=== PATIENT | male | born 1975 | race Caucasian/White ===

== ENCOUNTER 2024-09-14 13:22 | Emergency (ER) | payer OTHER, SELFPAY ==
[2024-09-14 13:59] VITALS: BP 139/93
[2024-09-14 14:00] VITALS: BP 139/93
--- NOTE | 2024-09-14 14:00 | ED.GENMED ---
ED Provider Triage
<Nima Fink PA-C - Last Filed: 09/14/24 14:02>
-
Patient seen by provider in Triage?: Seen in Triage
Attestation: A medical screening examination has been initiated by a qualified medical provider. Based on the assessment performed at this time, it has been determined that an emergent medical condition may exist and the patient has been informed
that further medical evaluation and possible additional diagnostic testing may be needed.
HPI: Noticed periumbilical suspected hernia couple weeks ago. Increasing pain over the this time. Started with some diarrhea the last few days. Made an appointment with primary care provider for tomorrow but due to increasing pain symptoms
decided to come here today. No change in oral intake. No nausea or vomiting.
GENERAL: Alert , in no apparent distress
EYE: No visual abnormalities.
NECK: Trachea midline
ENT: No visible abnormalities.
LUNGS: No acute respiratory distress
NEUROLOGICAL: Alert and oriented
SKIN: Skin intact. No visible changes.
MUSCULOSKELETAL: Moving extremities normally
PSYCH: Normal and appropriate interaction.
This is a medical evaluation conducted in person to initiate diagnostic evaluation and provide initial therapeutics. Please see further documentation by the treating clinician.
History of Present Illness
<Nima Fink PA-C - Last Filed: 09/14/24 14:02>
General
Chief Complaint: Abdominal Symptoms
Time Seen by Provider: 09/14/24 16:48
<Cristine Parikh NP - Last Filed: 09/14/24 23:50>
General
Source: patient
Exam Limitations: none
Nursing documentation reviewed up to this point in time: agreed with
History of Present Illness
History of Present Illness:
49 yo male with hx kidney stones, bipolar, depression presents for abdominal pain 'I think I have an umbilical hernia.' Has watery diarrhea frequently past 24 hours. Denies antibiotic use. Denies fever, chills.
He has felt hernia popping in and out past week, it has been uncomfortable but not really painful.
It is not out at this time.
Past History
<Nima Fink PA-C - Last Filed: 09/14/24 14:02>
Past History
ED Past Medical History: Other (kidney stone)
ED Past Surgical History: Urological
Social History
Tobacco: Non-smoker
Alcohol: None
Drug: None
Review of Systems
<Cristine Parikh [employer] - Last Filed: 09/14/24 23:50>
Review of Systems
Allergies reviewed?: Yes
All Other Systems: ROS reviewed and negative except as documented in HPI and ROS
Constitutional: Denies fever
Respiratory: Denies trouble breathing
Cardiac: Denies chest pain
ABD/GI: Reports abdominal pain and diarrhea; Denies nausea, vomiting, bloody stools or black stools
: Denies dysuria or difficulty voiding
Musculoskeletal: Reports no symptoms
Skin: Reports no symptoms
Neurological: Reports no symptoms
Phy Exam
<Cristine Parikh, [employer]PER[employer] - Last Filed: 09/14/24 23:50>
Physical Exam
Physical Exam:
GENERAL: No acute distress. A&Ox3.
CONSTITUTIONAL: Afebrile.
EYES: clear, conjunctivae normal
ENMT: moist mucus membranes
RESPIRATORY: Regular respirations, nonlabored, lungs clear.
CARDIOVASCULAR: Regular rate and rhythm, no murmurs, no rubs.
GI: Soft, obese, nontender, no palpable masses, normal BS
MUSCULOSKELETAL: Moves with ease. Well perfused.
SKIN: Warm, dry, pink
PSYCH: Normal mood and affect. Well kept, interactive and appropriate
NEUROLOGIC: Awake, alert and oriented. No focal neurological deficits
Course
<Nima Fink PA-C - Last Filed: 09/14/24 14:02>
Orders/Labs/Results
Orders:
Orders
09/14/24 14:11
CMP [Comprehensive Metabolic Panel] Urgent
Complete Blood Count/With Diff Urgent
Lactic Acid Q4H
Comment: CANCEL 2nd LACTIC ACID IF 1st LACTIC ACID IS LESS THAN 2
09/14/24 16:59
CT Abd/Pel (IV only)-DH only Urgent
Comment:
Reason For Exam: mid abd pain, diarrhea, hx umbilical hernia
09/14/24 17:01
0.9% Sodium Chloride 1000 ml [Nss] 1,000 ml IV BOLUS
09/14/24 17:12
CDIFF [C difficile Antigen & Toxins] Urgent
NEFTALY Source: Feces/Stool
Specimen Description:
Date Specimen was Collected: 09/14/24
Time Specimen was Collected: 17:03
Norovirus by PCR Urgent
NEFTALY Source: Feces/Stool
Specimen Description:
Date Specimen was Collected: 09/14/24
Time Specimen was Collected: 17:03
Stool Culture Urgent
NEFTALY Source: Feces/Stool
Specimen Description:
Date Specimen was Collected: 09/14/24
Time Specimen was Collected: 17:03
Abnormal Lab Results
09/14/24
14:11
WBC 14.0 H 10^3/uL
(4.8-10.8)
Abs Immat Gran (auto) 0.1 H 10^3/uL
(0-0.05)
Absolute Neuts (auto) 10.3 H 10^3/uL
(1.4-6.5)
Absolute Monos (auto) 1.0 H 10^3/uL
(0.1-0.6)
Lymphocytes % 18.1 L %
(20.5-51.1)
Carbon Dioxide 18 L mmol/L
(22-30)
BUN 25 H mg/dl
(9-20)
Total Protein 8.8 H g/dl
(6.3-8.2)
09/14/24 14:11
09/14/24 14:11
Vital Signs
Initial and Last Documented VS:
Initial Vital Signs
Temp Pulse Resp BP Pulse Ox
99.5 F 115 18 139/93 98
09/14/24 13:59 09/14/24 13:59 09/14/24 13:59 09/14/24 13:59 09/14/24 13:59
Last Documented Vital Signs
Temp Pulse Resp BP Pulse Ox
99.2 F 111 20 140/97 95
09/14/24 14:00 09/14/24 15:31 09/14/24 15:31 09/14/24 19:01 09/14/24 19:01
<Cristine Parikh, SUPERVIS[employer] - Last Filed: 09/14/24 23:50>
Orders/Labs/Results
Orders:
Orders
09/14/24 14:11
CMP [Comprehensive Metabolic Panel] Urgent
Complete Blood Count/With Diff Urgent
Lactic Acid Q4H
Comment: CANCEL 2nd LACTIC ACID IF 1st LACTIC ACID IS LESS THAN 2
09/14/24 16:59
CT Abd/Pel (IV only)-DH only Urgent
Comment:
Reason For Exam: mid abd pain, diarrhea, hx umbilical hernia
09/14/24 17:01
0.9% Sodium Chloride 1000 ml [Nss] 1,000 ml IV BOLUS
09/14/24 17:12
CDIFF [C difficile Antigen & Toxins] Urgent
NEFTALY Source: Feces/Stool
Specimen Description:
Date Specimen was Collected: 09/14/24
Time Specimen was Collected: 17:03
Norovirus by PCR Urgent
NEFTALY Source: Feces/Stool
Specimen Description:
Date Specimen was Collected: 09/14/24
Time Specimen was Collected: 17:03
Stool Culture Urgent
NEFTALY Source: Feces/Stool
Specimen Description:
Date Specimen was Collected: 09/14/24
Time Specimen was Collected: 17:03
Abnormal Lab Results
09/14/24
14:11
WBC 14.0 H 10^3/uL
(4.8-10.8)
Abs Immat Gran (auto) 0.1 H 10^3/uL
(0-0.05)
Absolute Neuts (auto) 10.3 H 10^3/uL
(1.4-6.5)
Absolute Monos (auto) 1.0 H 10^3/uL
(0.1-0.6)
Lymphocytes % 18.1 L %
(20.5-51.1)
Carbon Dioxide 18 L mmol/L
(22-30)
BUN 25 H mg/dl
(9-20)
Total Protein 8.8 H g/dl
(6.3-8.2)
09/14/24 14:11
09/14/24 14:11
Vital Signs
Initial and Last Documented VS:
Initial Vital Signs
Temp Pulse Resp BP Pulse Ox
99.5 F 115 18 139/93 98
09/14/24 13:59 09/14/24 13:59 09/14/24 13:59 09/14/24 13:59 09/14/24 13:59
Last Documented Vital Signs
Temp Pulse Resp BP Pulse Ox
99.2 F 111 20 140/97 95
09/14/24 14:00 09/14/24 15:31 09/14/24 15:31 09/14/24 19:01 09/14/24 19:01
<Cristine Parikh, [employer]PERVIS[employer] - Last Filed: 09/14/24 23:50>
MDM/Problems Addressed
Differential Diagnosis Includes:
Diarrhea: Norovirus, C. difficile, colitis, diverticulitis
umbilical hernia
MDM/Problems Addressed:
49 yo male with hx kidney stones, bipolar, depression presents for abdominal pain 'I think I have an umbilical hernia.' Has watery diarrhea frequently past 24 hours. Denies antibiotic use. Denies fever, chills.
He has felt hernia popping in and out past week, it has been uncomfortable but not really painful.
It is not out at this time.
Afebrile, NAD
4:45 PM: CBC: WBC 14 with Elevated neutrophils
CMP: BUN 25 bicarb 18 otherwise normal
6:30 PM:
CT abdomen pelvis with IV only contrast: IMPRESSION: The appendix appears normal. No evidence for bowel obstruction or free intraperitoneal air.
Moderate amount of fluid is seen within small bowel loops and within the colon. This finding can be seen with enteritis and colitis, although no gross evidence for significant bowel wall thickening. Please correlate clinically.
Small fat-containing umbilical hernia with no evidence for edema/inflammation. No evidence for bowel herniation.
Bony degenerative changes as described.
No gross evidence for urinary tract calculi, with no evidence for ureteral calculus.
After IVFs pt states he's feeling much better.
Pt given copy of CT report, all questions answered.
Final diagnosis: enteritis, most likely viral, small umbilical hernia
Stool cultures pending, will contact pt if any are clinically significant positive
<Cristine Parikh [employer]PER[employer] - Last Filed: 09/14/24 23:50>
*Critical Care Note
Total Time (30-74mins, 75-104mins- exclusive of procedures): Not Applicable
ED Attending Note
<Nima Fink PA-C - Last Filed: 09/14/24 14:02>
-
Portions of this chart may have been created with voice recognition software.� Occasional wrong word or��sound alike� substitutions may have occurred due to the inherent limitations of voice recognition software.
Discharge Plan
Departure
Patient Disposition: Home (Routine Discharge)
Date of Disposition: 09/14/24
Time of Disposition: 19:02
Patient with high blood pressure during this ER visit?: No
Condition: Good
Discharge Problem:
Enteritis, Umbilical hernia
Instructions: Diarrhea in teens and adults, Viral gastroenteritis in adults, Abdominal wall hernias
Prescriptions:
No Action
olanzapine 10 MG tablet
10 mg PO HS
tamsulosin 0.4 MG capsule
0.4 mg PO DAILY
phenazopyridine 100 MG tablet
100 mg PO DAILY
bupropion HCl 300 MG tablet extended release 24 hr
300 mg PO QPM
tramadol [Ultram ER] 100 MG tablet extended release 24 hr
100 mg PO Q4HPRN PRN (Reason: pain)
hydrocodone-acetaminophen 1 TABLET tablet
1 tab PO Q4HPRN PRN (Reason: pain) Qty: 10 0RF
cephalexin 500 MG capsule
500 mg PO QID Qty: 12 0RF
Referrals:
Isabel Lara, DO [Family Provider] - As needed
Activity Restrictions/Additional Instructions:
As we discussed, you most likely have a viral gastroenteritis.
Drink plenty of fluids to stay hydrated
Interventions
Interventions:
*Risk Screen - Suicide Last Done: 09/14/24 19:07
*General Assessment Last Done: 09/14/24 17:07
*Neglect/Abuse Screening Last Done: 09/14/24 17:07
ED- Fall Risk Assessment Last Done: 09/14/24 17:07
*ED COVID-19 Vaccine History Last Done: 09/14/24 14:00
*Nursing Disposition Last Done: 09/14/24 19:07
NN-Tctkck-Lgybhyutki Assessment Last Done: 09/14/24 17:07
Discharge Date and Time
Discharge Date/Time: 09/14/24 19:16
Print Language: GEORGIAN
[2024-09-14 14:21] LABS: % Basophils 0.4 % (0-2); % Eosinophils 0.6 % (0-6); % Immature Granulocytes 0.5 % (0-0.5); % Lymphocytes 18.1 % (20.5-51.1); % Monocytes 7.1 % (1.7-9.3); % Neutrophils 73.3 % (42.2-75.2); Absolute Basophils 0.1 10^3/uL (0-0.2); Absolute Eosinophils 0.1 10^3/uL (0-0.7); Absolute Immature Granulocytes 0.1 10^3/uL (0-0.05); Absolute Lymphocytes 2.5 10^3/uL (1.2-3.4); Absolute Neutrophils 10.3 10^3/uL (1.4-6.5); Hemoglobin 17.3 g/dL (13.0-18.0); Mean Corp Hgb Conc. 33.3 g/dL (33.0-37.0); Mean Corpuscular Hgb 28.8 pg (27.0-31.0); Mean Corpuscular Volume 86.7 fL (80.0-94.0); Mean Platelet Volume 8.7 fL (7.4-10.4); Nucleated Red Blood Cells % 0 % (-); Platelet Count 385 10^3/uL (130-400); Red Cell Dist. Width 13.2 % (11.5-14.5)
[2024-09-14 14:34] LABS: Lactic Acid 0.7 mmol/L (0.7-2.0)
[2024-09-14 14:36] LABS: ALT (SGPT) 35 U/L (0-50); AST (SGOT) 33 U/L (17-59); Alkaline Phosphatase 67 U/L (38-126); Blood Urea Nitrogen 25 mg/dl (9-20); Calcium 9.9 mg/dl (8.4-10.2); Carbon Dioxide 18 mmol/L (22-30); Chloride 105 mmol/L (98-107); Glucose 97 mg/dl (70-99); Potassium 4.4 mmol/L (3.5-5.1); Sodium 138 mmol/L (135-145); Total Bilirubin 0.8 mg/dl (0.2-1.3); Total Protein 8.8 g/dl (6.3-8.2); eGFR > 60.00
[2024-09-14 15:31] VITALS: BP 112/79
[2024-09-14 17:05] VITALS: BMI 32.3
[2024-09-14 17:07] VITALS: BP 133/102
[2024-09-14] MEDS: NSS 1000 IV (17:19)
[2024-09-14 18:00] VITALS: BP 135/89
[2024-09-14 19:01] VITALS: BP 140/97
== END 2024-09-14 19:16 | disposition home or self-care (01) ==
LOC: EMR 13:22
PROVIDERS: Emergency Medicine; Physician Assistant Medical; EMERGENCY PHYSICIAN Emergency Medicine; FAMILY PHYSICIAN Internal Medicine
DX: K42.9 Umbilical hernia without obstruction or gangrene (principal); R19.7 Diarrhea, unspecified; K52.9 Noninfective gastroenteritis and colitis, unspecified; F31.9 Bipolar disorder, unspecified; F32.A Depression, unspecified; I10 Essential (primary) hypertension; Z87.442 Personal history of urinary calculi; Z88.8 Allergy status to other drugs, medicaments and biological substances
CPT/HCPCS: 99284; 96360; 74177; 80053; 83605; 85025; 87045; 87046; 87077; 87324; 87427; 87449; 87798; Q9967